=== PATIENT | male | born 1965 | race African-American/Black ===

== ENCOUNTER 2024-02-25 02:24 | Emergency (ER) | payer SELFPAY ==
[~2024-02-25] VITALS: Ht 172.7 cm; Wt 64.0 kg
[2024-02-25 02:43] VITALS: BP 140/88; PULSE 80; RESP 15; TEMP 98.1; O2SAT 100
== END 2024-02-25 06:51 | disposition home or self-care (01) ==
LOC: ER 02:24
DX: M25.512 Pain in left shoulder (principal)
CPT/HCPCS: 73030; 99283